=== PATIENT | female | born 1990 | race Caucasian/White ===

== ENCOUNTER 2017-07-20 20:24 | Emergency (ER) | payer MEDICAID ==
[2017-07-21 00:29] VITALS: BP 98/60
== END 2017-07-21 00:29 | disposition home or self-care (01) ==
LOC: ED 20:24
DX: J20.9 Acute bronchitis, unspecified (principal); B34.9 Viral infection, unspecified; Z90.710 Acquired absence of both cervix and uterus
CPT/HCPCS: J1885; J7613